=== PATIENT | male | born 1980 | race Hispanic/Latino ===

== ENCOUNTER → 2025-08-31 | Outpatient (CLI) | payer BC ==
[2025-08-31 12:47] LABS: CREATININE 0.9 mg/dL (0.5-1.3); GLOMERULAR FILTR. RATE CALC 109.0 mL/min (>90); UREA NITROGEN, BLOOD 6.0 mg/dL (7-18)
== END | disposition home or self-care (01) ==
LOC: LAB 11:35
PROVIDERS: ATTEND Internal Medicine Gastroenterology
DX: R10.30 Lower abdominal pain, unspecified (principal)
CPT/HCPCS: 36415; 82565; 84520

== ENCOUNTER → 2025-09-06 | Outpatient (CLI) | payer BC ==
[~2025-09-06] MED LIST: IOHEXOL-350 75 ML VIAL IV ONE
--- NOTE | 2025-09-07 10:54 | HMCIMG ---
EXAM: CT Abdomen and Pelvis with and without Intravenous Contrast CLINICAL HISTORY: Lower abdominal pain. COMPARISON: No prior studies available for comparison. RADIATION DOSE: Total DLP 4651.20 mGycm. Total CTDIvol 86.4 mGy. Dose reduction techniques were utilized, including automated exposure control and adjustment of mA and kV according to patient size. CONTRAST: 75 mL of iodinated intravenous contrast administered. TECHNIQUE: Axial CT images of the abdomen and pelvis were obtained before and after intravenous contrast administration, with multiplanar reformations. FINDINGS: Lung Bases: No basilar airspace consolidation or pleural effusion. Liver: Diffuse fatty infiltration of the liver is present. The liver is enlarged, measuring approximately 19.6 cm in craniocaudal dimension. No focal hepatic lesion is identified. Gallbladder and Biliary System: The gallbladder is unremarkable. No calcified gallstones or biliary ductal dilatation. Pancreas: Unremarkable in size and attenuation, without focal lesion or peripancreatic inflammation. Spleen: Measures approximately 11.3 cm, within normal limits. No focal lesion. Adrenal Glands: Both adrenal glands are unremarkable. Kidneys and Ureters: Multiple nonobstructing renal calculi are present. These include a 2 mm upper pole and a 3 mm interpolar calculus in the right kidney, and 2 mm and 4 mm upper and interpolar calyceal calculi in the left kidney. No ureteric calculi or hydroureteronephrosis bilaterally. The average attenuation of the renal calculi measures approximately 237 HU. Urinary Bladder: Diffuse bladder wall thickening is noted, suggestive of sequelae of chronic bladder outlet obstruction. No intravesical calculus. Bowel and Mesentery: Multiple diverticula are present in the descending and sigmoid colon. There is an inflamed sigmoid diverticulum with surrounding pericolonic fat stranding and minimal adjacent fluid. Within the wall of the inflamed sigmoid colon, there is a rim-enhancing intramural collection measuring approximately 1.0 1.5 1.3 cm, consistent with an intramural abscess. No extraluminal air, no rim-enhancing pericolonic collection, and no evidence of free perforation are identified. No bowel obstruction or CT evidence of colitis. Appendix: Normal in caliber and appearance, without periappendiceal inflammation. Peritoneal Spaces: Minimal localized fluid adjacent to the inflamed sigmoid colon. No free intraperitoneal air. Lymph Nodes: No pathologically enlarged abdominopelvic lymph nodes. Vasculature: The abdominal aorta is normal in caliber, without aneurysm or dissection. Coronary arterial calcifications are noted. Pelvic Viscera: Mild prostatomegaly. Other visualized pelvic reproductive structures are unremarkable. Abdominal Wall: Unremarkable. Bones: Degenerative changes of the lumbar spine are present, including lumbar spondylosis, facet arthropathy at L4-L5 and L5-S1, and central disc herniations at L4-L5 and L5-S1 causing mild spinal canal narrowing. Mild retrolisthesis of L5 over S1 is noted without spondylolysis. A subcentimeter sclerotic focus in the right iliac bone adjacent to the sacroiliac joint is seen, compatible with a bone island. Degenerative changes are present in both hip joints. No acute osseous abnormality. IMPRESSION: * Acute sigmoid diverticulitis with a rim-enhancing intramural abscess measuring up to 1.5 cm, without evidence of perforation or extraluminal/pericolonic abscess. * Bilateral nonobstructing renal calculi without hydroureteronephrosis. * Hepatomegaly with diffuse hepatic steatosis. /[facility]
== END | disposition home or self-care (01) ==
LOC: RAH 08:09 → EDUNIT# 08:30
PROVIDERS: ATTEND Internal Medicine Gastroenterology
DX: K57.20 Diverticulitis of large intestine with perforation and abscess without bleeding (principal); N20.0 Calculus of kidney; K76.0 Fatty (change of) liver, not elsewhere classified; R16.0 Hepatomegaly, not elsewhere classified; L02.91 Cutaneous abscess, unspecified; M47.816 Spondylosis without myelopathy or radiculopathy, lumbar region; R10.30 Lower abdominal pain, unspecified; M47.817 Spondylosis without myelopathy or radiculopathy, lumbosacral region; M48.07 Spinal stenosis, lumbosacral region; M16.0 Bilateral primary osteoarthritis of hip
CPT/HCPCS: 74178; Q9967